=== PATIENT | male | born 1980 | race African-American/Black ===

== ENCOUNTER 2023-08-01 13:15 | Emergency (ER) | payer BC ==
[~2023-08-01] VITALS: Ht 190.5 cm; Wt 127.0 kg
[~2023-08-01 13:15] MED LIST: CEPHALEXIN500 M1 PO; CLEOCIN150 MG PO; FLEXERIL5 MG PO; HYDROCODONE BIT1 T11 PO; MOTRIN800 MG PO; PENICILLIN-VK500 MG PO; PREDNISONE20 M1 PO; VICO75300 PO; [UNRECOGNIZED DRUG - REMARK]
[2023-08-01 13:34] VITALS: BP 132/75
[2023-08-01] MEDS ORDERED: ACETAMINOPHEN 325 MG TAB PO ONE (13:50)
[2023-08-01] MEDS ORDERED: DECADRON4 MG PO (14:40)
[2023-08-01] MEDS ORDERED: NYST SUSP PO (14:40)
== END 2023-08-01 14:46 | disposition home or self-care (01) ==
LOC: ED 13:15
DX: U07.1 COVID-19 (principal); B37.0 Candidal stomatitis; Z98.890 Other specified postprocedural states